=== PATIENT | male | born 1995 | race Caucasian/White ===

== ENCOUNTER 2016-05-19 03:01 | Emergency (ER) | payer OTHER ==
[~2016-05-19 03:01] MED LIST: EPINEPHrine AMP 1 MG/ML SUBCUT ONE
[2016-05-19] MEDS ORDERED: NS 0.9% 1000 ML* 1,000 ML IV ONE (03:05)
[2016-05-19] MEDS ORDERED: Famotidine IV* 10 MG/ML 2 ML (20 mg) IV SLOW PU ONE (03:05)
--- NOTE | 2016-05-19 03:29 | ED ---
Troy Arana SooYoung, scribed for Andrea Mendoza MD on 05/19/16 at 0317 . Allergic Reaction/Systemic - HPI Summary HPI Summary: A 20 y/o M KENNETH presents to ED after a severe allergic reaction. According to EMS, when they arrived on the scene, pt's face was swollen, he was having difficulty breathing, heard wheezing, had diffuse hives and rash on torso. Unsure what caused the reaction. EMS gave him 0.3 mg Epi 3x. Pt is an [employer] student. Currently in the ED, he states his throat is feeling much better. - History of Current Complaint Hx Obtained From: Patient, EMS Onset/Duration: Sudden Onset, Still Present Timing: Constant Severity Currently: Severe Location: Diffuse Character: Swelling, Hives Alleviating Factor(s): Epinephrine - Allergies/Home Medications Allergies/Adverse Reactions: Allergies Allergy/AdvReac Type Severity Reaction Status Date / Time Cephalosporins Allergy Unknown Unknown Verified 05/19/16 03:24 Reaction Details Penicillins [PCN] Allergy Unknown Unknown Verified 05/19/16 03:24 Reaction Details Sulfa Antibiotics Allergy Unknown Unknown Verified 05/19/16 03:24 Reaction Details PMH/Surg Hx/FS Hx/Imm Hx Previously Healthy: Yes Sensory History: Denies: Hx Legally Blind - Immunization History Date of Influenza Vaccine: last week - Social History Occupation: Student Lives: With Family - [employer] Alcohol Use: Occasionally Substance Use Type: Reports: Marijuana Smoking Status (MU): Never Smoked Tobacco Review of Systems Positive: Other - pos: difficulty breathing, throat tightening Positive: Rash, Other - pos: hives, facial swelling All Other Systems Reviewed And Are Negative: Yes Physical Exam Triage Information Reviewed: Yes Vital Signs On Initial Exam: Initial Vitals Temp Pulse Resp BP Pulse Ox 99.5 F 114 21 150/107 99 05/19/16 03:07 05/19/16 03:07 05/19/16 03:07 05/19/16 03:07 05/19/16 03:07 Vital Signs Reviewed: Yes Appearance: Positive: Ill-Appearing Skin: Positive: Warm - diffuse urticaria Head/Face: Positive: Other - perioral swelling Eyes: Positive: JAIME ENT: Positive: Pharyngeal erythema Neck: Positive: Supple Respiratory/Lung Sounds: Positive: Clear to Auscultation, Breath Sounds Present Cardiovascular: Positive: Tachycardia Abdomen Description: Positive: Nontender, Soft Bowel Sounds: Positive: Present Musculoskeletal: Positive: Strength/ROM Intact Neurological: Positive: Alert, Oriented to Person Place, Time Diagnostics - Vital Signs Vital Signs Temp Pulse Resp BP Pulse Ox 05/19/16 03:07 99.5 F 114 21 150/107 99 - Laboratory Result Diagrams: 05/19/16 03:20 05/19/16 03:20 Lab Statement: Any lab studies that have been ordered have been reviewed, and results considered in the medical decision making process. Re-Evaluation - Re-Evaluation 1 Re-Evaluation Time: 04:12 Change: Improved Comment: Pt's swelling has reduced, he's breathing on his own, hives and rash are less visible. Allergic Reaction Course/Dx - Diagnoses Provider Diagnoses: Acute allergic reaction - Critical Care Time Critical Care Time: 30-74 min Discharge - Discharge Plan Condition: Improved Disposition: HOME Prescriptions: Epinephrine [Epipen 2-Dillon] 0.3 mg IM AC #1 inj diPHENhydraMINE PO* [Benadryl PO*] 25 mg PO Q6H #20 tab predniSONE TAB* [Deltasone TAB*] 40 mg PO DAILY #8 tab Patient Education Materials: Prednisone (By mouth), Diphenhydramine (By mouth) , Epinephrine (By injection), General Allergic Reaction (ED) Referrals: [facility] [Provider Group] - As Soon As Possible [facility] [Primary Care Provider] - Additional Instructions: Return to the Emergency Department for new or worsening symptoms. Follow up with [facility] as soon as possible. The documentation as recorded by the Troy rivas SooYoung accurately reflects the service I personally performed and the decisions made by me, Andrea Mendoza MD.
[2016-05-19 03:45] LABS: Albumin 4.3 g/dL (3.2-5.2); BUN/Creatinine Ratio 13.5 (8-20); Calcium 8.9 mg/dL (8.6-10.3); EGFR African American 92.9 (>60); EGFR Non-African American 72.2 (>60); Globulin 2.7 g/dL (2-4); Hematocrit 50 % (42-52); Magnesium 2.1 mg/dL (1.9-2.7); Mean Corpuscular HGB Conc 34 g/dl (31-36); Mean Corpuscular Hemoglobin 30 pg (27-31); Mean Corpuscular Volume 86 fL (80-94); Mean Platelet Volume 8 um3 (7.4-10.4); Potassium 3.4 mmol/L (3.5-5.0); Red Blood Count 5.76 10^6/ul (4.0-5.4); Red Cell Distribution Width 14 % (10.5-15); Total Bilirubin 0.6 mg/dL (0.2-1.0); White Blood Count 23.1 10^3/ul (3.5-10.8)
[2016-05-19 03:47] LABS: Add Diff/Slide Review? Slide Review Added; Comments Flag Yes
[2016-05-19 04:57] LABS: Urine Bilirubin Negative (Negative); Urine Glucose 3+(>=500 mg/dL) (Negative); Urine Nitrite Negative (Negative)
[2016-05-19 05:33] VITALS: BP 166/99
== END 2016-05-19 05:40 | disposition home or self-care (01) ==
LOC: ED 03:01
DX: T78.40XA Allergy, unspecified, initial encounter (principal); X58.XXXA Exposure to other specified factors, initial encounter; L50.9 Urticaria, unspecified; R60.9 Edema, unspecified; R21 Rash and other nonspecific skin eruption
CPT/HCPCS: 36415; 80053; 81003; 83735; 85025; 96374; 99283; J0171

== ENCOUNTER 2016-07-26 02:47 | Emergency (ER) | payer OTHER ==
[2016-07-26] MEDS ORDERED: Famotidine IV* 10 MG/ML 2 ML (20 mg) IV SLOW PU ONE (02:55)
[2016-07-26] MEDS ORDERED: NS 0.9% 1000 ML* 1,000 ML IV ONE (02:55)
[2016-07-26] MEDS ORDERED: diPHENhydraMINE IV* 50 MG/ML 1 ml VIAL (BENADRYL) IV ONE (02:55)
[2016-07-26] MEDS ORDERED: methylPREDNISolone 125 MG* 2 ML VIAL IV ONE (02:55)
[2016-07-26] MEDS ORDERED: Famotidine IV* 10 MG/ML 2 ML (20 mg) ONE (03:09)
--- NOTE | 2016-07-26 03:11 | ED ---
Erickson Arana Michael, scribed for Andrea Mendoza MD on 07/26/16 at 0301 . Allergic Reaction/Systemic - HPI Summary HPI Summary: 20 y/o male comes to the ED presenting with an allergic reaction that started 30 minutes ago. The pt reports that he was walking home when the allergic reaction started, and he cannot recall what aggravated it. He did not use his Epipen, which he usually has on him. The pt c/o hives, erythema and swelling that are located diffusely. The pt denies all other symptoms. - History of Current Complaint Chief Complaint: EDAllergicReaction Hx Obtained From: Patient, Medical Records Onset/Duration: Sudden Onset, Still Present Timing: Constant Severity Initially: Moderate Severity Currently: Moderate Pain Intensity: 0 Pain Scale Used: 0-10 Numeric Location: Diffuse Character: Swelling, Hives - erythema Aggravating Factor(s): Nothing Alleviating Factor(s): Nothing Associated Signs And Symptoms: Positive: Rash - hives with swelling and erythema - Allergies/Home Medications Allergies/Adverse Reactions: Allergies Allergy/AdvReac Type Severity Reaction Status Date / Time Cephalosporins Allergy Unknown Unknown Verified 05/19/16 03:24 Reaction Details Penicillins [PCN] Allergy Unknown Unknown Verified 05/19/16 03:24 Reaction Details Sulfa Antibiotics Allergy Unknown Unknown Verified 05/19/16 03:24 Reaction Details Tree Nuts Allergy Anaphylatic Verified 07/26/16 03:21 Shock PMH/Surg Hx/FS Hx/Imm Hx Sensory History: Denies: Hx Legally Blind Opthamlomology History: Denies: Hx Legally Blind Psychiatric History: Reports: Hx Attention Deficit Hyperactivity Disorder - Immunization History Date of Influenza Vaccine: last week Infectious Disease History: Denies: Traveled Outside the [place] in Last 30 Days - Family History Known Family History: Positive: None Family History: pt denies significant FHx - Social History Occupation: Student Lives: Alone Alcohol Use: Occasionally Substance Use Type: Reports: Marijuana Substance Use Comment - Amount & Last Used: last used 2 weeks ago Smoking Status (MU): Never Smoked Tobacco Review of Systems Negative: Fever Positive: Rash - hives, Other - erythema and swelling All Other Systems Reviewed And Are Negative: Yes Physical Exam Triage Information Reviewed: Yes Vital Signs On Initial Exam: Initial Vitals Temp Pulse Resp BP Pulse Ox 99.1 F 133 20 145/94 92 07/26/16 02:50 07/26/16 02:50 07/26/16 02:50 07/26/16 02:50 07/26/16 02:50 Vital Signs Reviewed: Yes Appearance: Positive: Well-Appearing, No Pain Distress Skin: Positive: Warm, Other - patchy diffuse urticarial rash Head/Face: Positive: Normal Head/Face Inspection Eyes: Positive: JAIME ENT: Positive: Hearing grossly normal Neck: Positive: Supple Respiratory/Lung Sounds: Positive: Clear to Auscultation, Breath Sounds Present. Negative: Wheezes Cardiovascular: Positive: RRR Abdomen Description: Positive: Nontender, Soft Bowel Sounds: Positive: Present Neurological: Positive: Alert, Oriented to Person Place, Time Diagnostics - Vital Signs Vital Signs Temp Pulse Resp BP Pulse Ox 07/26/16 02:50 99.1 F 133 20 145/94 92 - Laboratory Lab Statement: Any lab studies that have been ordered have been reviewed, and results considered in the medical decision making process. Re-Evaluation - Re-Evaluation First Eval Change: Improved Allergic Reaction Course/Dx - Diagnoses Provider Diagnoses: Allergic reaction Discharge - Discharge Plan Condition: Improved Disposition: HOME Prescriptions: Epinephrine [Epipen 2-Dillon] 0.3 mg IM BID #1 inj diPHENhydraMINE PO* [Benadryl PO 25 MG TAB*] 25 mg PO Q6H #20 tab predniSONE TAB* [Deltasone TAB*] 40 mg PO DAILY #8 tab Patient Education Materials: General Allergic Reaction (ED) Referrals: [facility] [Primary Care Provider] - Additional Instructions: Please follow up with [facility] within the next 2 days. The documentation as recorded by the Erickson rivas Michael accurately reflects the service I personally performed and the decisions made by me, Andrea Mendoza MD.
[2016-07-26 05:14] VITALS: BP 126/77
== END 2016-07-26 04:20 | disposition home or self-care (01) ==
LOC: ED 02:47
DX: T78.40XA Allergy, unspecified, initial encounter (principal); R21 Rash and other nonspecific skin eruption; L50.9 Urticaria, unspecified; X58.XXXA Exposure to other specified factors, initial encounter
CPT/HCPCS: 96374; 96375; 99283; J1200; J2930